=== PATIENT | male | born 1985 | race Caucasian/White ===

== ENCOUNTER 2022-10-16 21:31 | Emergency (ER) | payer MEDICAID ==
[~2022-10-16] VITALS: Ht 180.3 cm; Wt 81.6 kg
[2022-10-16 21:50] VITALS: BP_SYST 171
--- NOTE | 2022-10-16 23:50 | NUR ---
ER examining patient in the triage room.
[2022-10-17] MEDS ORDERED: cephALEXin 500 MG CAPSULE PO ONE
[2022-10-17] MEDS ORDERED: IBUP-1969 PO (00:04)
[2022-10-17] MEDS ORDERED: CEPH-548 PO (00:04)
--- NOTE | 2022-10-17 00:06 | NUR ---
Patient to ER [facility] for evaluation. Side rails up. Report given to EMMANUEL HUDSON(REG).
--- NOTE | 2022-10-17 00:08 | NUR ---
Patient arrived in for c/o bug bite. Patient said [place] and he suspects a bug or spider may have bitten him. Denies PMH. Dr. Arevalo at bedside to MSE patient. Medications noted and carried out. Will continue to monitor.
[2022-10-17] MEDS: ACETAMINOPHEN 500 MG TABLET PO ONE ×2 (00:18→00:19)
[2022-10-17] MEDS: IBUPROFEN 600 MG TABLET PO ONE ×2 (00:18→00:19)
--- NOTE | 2022-10-17 00:21 | NUR ---
Patient given written and verbal discharge instructions and verbalizes understanding. ER MD discussed with patient the results and treatment provided. Patient in stable condition. ID arm band removed. Rx of keflex given. Patient educated on pain management and to follow up with PMD. Pain Scale . Opportunity for questions provided and answered. Medication side effect fact sheet provided.
[2022-10-17 00:22] VITALS: BP_SYST 134
== END 2022-10-17 00:22 | disposition home or self-care (01) ==
LOC: SED 21:31
DX: L03.116 Cellulitis of left lower limb (principal); M25.572 Pain in left ankle and joints of left foot; Z79.899 Other long term (current) drug therapy
CPT/HCPCS: 99283

== ENCOUNTER 2022-11-07 22:33 | Emergency (ER) | payer MEDICAID ==
[~2022-11-07] VITALS: Ht 180.3 cm; Wt 81.6 kg
[~2022-11-07 22:33] MED LIST: CEPH-548 PO; IBUP-1969 PO
--- NOTE | 2022-11-07 22:47 | NUR ---
Patient arrived to ED 3 for c/o left neck swelling, pain, unable to swallow. Patient said that he was giving a girl oral sex and everything was ok the next day, but he noticed swelling and difficulty swallowing later in the night. He believes his throat is irritating and he denies choking on anything. Patient denies PMH at the moment. He did not take any medications prior to arrival. Dr. Rojo at bedside to MSE patient. Will continue to monitor.
[2022-11-07 22:50] VITALS: BP_SYST 134
[2022-11-07] MEDS ORDERED: CLINDAMYCIN 600 MG in D5W 50 ML IV ONE (23:00)
[2022-11-07] MEDS ORDERED: KETOROLAC TROMETHAMINE 30 MG VIAL IVP ONE (23:00)
[2022-11-07] MEDS ORDERED: DEXAMETHASONE SOD PHOSPHATE 10 MG/ML VIAL IVP ONE (23:00)
[2022-11-07] MEDS ORDERED: cefTRIAXone 1 GM in D5W 50 ML IV ONE (23:00)
[2022-11-07] MEDS ORDERED: cefTRIAXone 1 GM VIAL ONE (23:06)
[2022-11-07 23:43] LABS: BASOPHILS % (AUTO) 0.4 % (0.0-2.0); EOSINOPHILS # (AUTO) 0.1 K/uL (0.0-0.4); EOSINOPHILS % (AUTO) 0.9 % (0.0-4.0); HEMATOCRIT 42.9 % (36-54); HEMOGLOBIN 14.9 g/dL (14.0-18.0); LYMPHOCYTES # (AUTO) 1.5 K/uL (1.0-5.5); LYMPHOCYTES % (AUTO) 16.4 % (20.5-51.5); MEAN CORPUSCULAR HEMOGLOBIN 31 pg (27-31); MEAN CORPUSCULAR HGB CONC 35 % (32-36); MEAN CORPUSCULAR VOLUME 89 fL (79.0-98.0); MONOCYTES # (AUTO) 0.8 K/uL (0.0-1.0); MONOCYTES % (AUTO) 8.7 % (1.7-9.3); NEUTROPHILS # (AUTO) 6.7 K/uL (1.8-7.7); NEUTROPHILS % (AUTO) 73.6 % (40.0-70.0); PLATELET COUNT (AUTO) 290 K/uL (130-430); RED BLOOD CELL COUNT(AUTO) 4.84 MIL/uL (4.2-6.2); RED CELL DISTRIBUTION WIDTH 12.6 % (9.0-15.0); WHITE BLOOD COUNT (AUTO) 9.1 K/uL (4.8-10.8)
[2022-11-07] MEDS ORDERED: CLINDAMYCIN 900 mg/50mL D5W 50 ML IV ONE (23:47)
--- NOTE | 2022-11-08 00:41 | NUR ---
Patient resting at the moment. Meds given.
[2022-11-08] MEDS ORDERED: IBUP-1969 PO (01:00)
[2022-11-08] MEDS ORDERED: AMOX500C2 PO (01:00)
[2022-11-08] MEDS ORDERED: CLIN300C3 PO (01:00)
[2022-11-08] MEDS ORDERED: PRED20TA PO (01:00)
[2022-11-08] MEDS ORDERED: AZITHROMYCIN 250 MG TABLET PO ONE (01:15)
--- NOTE | 2022-11-08 01:15 | NUR ---
Pt medicated per MD order, see eMAR.
[2022-11-08 01:51] VITALS: BP_SYST 134
--- NOTE | 2022-11-08 01:52 | NUR ---
Patient given written and verbal discharge instructions and verbalizes understanding. ER MD discussed with patient the results and treatment provided. Patient in stable condition. ID arm band removed. IV catheter removed intact and dressing applied, no active bleeding. Rx of amoxicillin, clindamycin, ibuprofen given. Patient educated on pain management and to follow up with PMD. Pain Scale . Opportunity for questions provided and answered. Medication side effect fact sheet provided.
== END 2022-11-08 01:52 | disposition home or self-care (01) ==
LOC: SED 22:33
DX: J36 Peritonsillar abscess (principal); R13.10 Dysphagia, unspecified; Z79.899 Other long term (current) drug therapy
CPT/HCPCS: 99284; 96365; 96375; 96367; 85025; 87040; 36415; 87491; J0696; J3490; J1100; J1885; Q0144